=== PATIENT | female | born 1985 | race Caucasian/White ===

== ENCOUNTER 2021-05-09 17:22 | Inpatient (IN) | payer MEDICAID, OTHER ==
[~2021-05-09] VITALS: Ht 167.6 cm; Wt 116.7 kg
[2021-05-09 17:51] LABS: BASOPHILS % (AUTO) 0.4 % (0.0-2.0); EOSINOPHILS % (AUTO) 1.6 % (1.0-6.0); HEMATOCRIT 39.8 % (36-46); HEMOGLOBIN 13.1 g/dL (12.0-16.0); LYMPHOCYTES # (AUTO) 1.8 K/uL (1.0-4.8); LYMPHOCYTES % (AUTO) 22.8 % (22.0-44.0); MEAN CORPUSCULAR HGB CONC 32.9 G/dL (31.0-37.0); MEAN CORPUSCULAR VOLUME 88 fL (80-100); MONOCYTES # (AUTO) 0.6 K/uL (0.1-1.0); MONOCYTES % (AUTO) 7.1 % (2.0-9.0); NEUTROPHILS # (AUTO) 5.3 K/uL (1.8-7.7); NEUTROPHILS % (AUTO) 68.1 % (40.0-70.0); PLATELET COUNT (AUTO) 193 K/uL (150-450); RED CELL DISTRIBUTION WIDTH 13.3 % (11.5-14.5)
[2021-05-09 18:01] LABS: ANION GAP 12 mmol/L (8-16); CALCIUM, TOTAL 8.7 mg/dL (8.8-10.5); CARBON DIOXIDE 23 mmol/L (22-29); CHLORIDE 103 mmol/L (98-107); CREATININE 0.82 mg/dL (0.60-1.30); GLOMERULAR FILTR. RATE CALC > 60 mL/min (>60); GLUCOSE,RANDOM 100 mg/dL (70-110); POTASSIUM 3.5 mmol/L (3.5-5.1); SODIUM SERUM 138 mmol/L (136-145); UREA NITROGEN, BLOOD 23 mg/dL (7-18)
[2021-05-09 18:04] LABS: PROTHROMBIN TIME 10.9 SEC (9.4-11.6)
[2021-05-09 18:13] LABS: ACETAMINOPHEN 8 mcg/mL (10-30); ALANINE AMINOTRANSFERASE 21 U/L (12-78); ALBUMIN 3.8 g/dL (3.4-5.0); ALKALINE PHOSPHATASE 92 U/L (46-116); ASPARTATE AMINOTRANSFERASE 18 U/L (15-37); BILIRUBIN,TOTAL 0.4 mg/dL (0.1-1.0); HCG,QUANTITATIVE < 1 mIU/mL (0-6); SALICYLATE < 2.8 mg/dL (2.8-20.0); TOTAL PROTEIN, SERUM 7.6 g/dL (6.4-8.2)
[2021-05-09 18:24] LABS: COVID AG,FIA SOURCE NASOPHARYNGEAL
[2021-05-09] MEDS ORDERED: MAG HYDROX/AL HYDROX/SIMETH ES 30 ML SUSPENSION UDCUP PO ONE (19:15)
[2021-05-09] MEDS ORDERED: ZOLPIDEM TARTRATE 10 MG TABLET PO PRN (19:15)
[2021-05-09] MEDS ORDERED: ONDANSETRON HCL 4 MG TABLET PO ONE (19:15)
[2021-05-09] MEDS ORDERED: LORazepam 2 MG TABLET PO PRN (19:15)
[2021-05-09] MEDS ORDERED: QUEtiapine FUMARATE 100 MG TABLET PO PRN (19:15)
[2021-05-10] MEDS ORDERED: ONDANSETRON HCL 4 MG TABLET PO ONE (01:30)
[2021-05-10 09:48] LABS: CHOL/HDL RATIO 2.7 (3.9-5.7)
[2021-05-11 00:11] VITALS: BP 133/82
[2021-05-11 08:34] VITALS: BP 116/66
[2021-05-11] MEDS: ESCITALOPRAM OXALATE 10 MG TABLET PO SCH (13:45)
[2021-05-11] MEDS ORDERED: ALBUTEROL SULFATE HFA 90 MCG/PUFF 8 GM INHALER IH PRN (15:15)
[2021-05-11] MEDS ORDERED: IBUPROFEN 400 MG TABLET PO PRN (15:15)
[2021-05-11] MEDS ORDERED: GuaiFENesin/D-METHORPHAN [SUGAR-FREE] 200-20MG/10 ML SYRUP UDCUP PO PRN (15:15)
[2021-05-11] MEDS ORDERED: NICOTINE 14 MG/24 HOUR PATCH TD PRN (15:15)
[2021-05-11] MEDS ORDERED: CloNIDine HCL 0.1 MG TABLET PO PRN (15:15)
[2021-05-11] MEDS ORDERED: ONDANSETRON HCL 4 MG TABLET PO PRN (15:15)
[2021-05-11] MEDS ORDERED: DOCUSATE SODIUM 100 MG CAPSULE PO PRN (15:15)
[2021-05-11] MEDS ORDERED: PETROLATUM,WHITE 28 GM JELLY TP PRN (15:15)
[2021-05-11] MEDS ORDERED: ACETAMINOPHEN 325 MG TABLET PO PRN (15:15)
[2021-05-11] MEDS ORDERED: LOPERAMIDE HCL 2 MG CAPSULE PO PRN (15:15)
[2021-05-11] MEDS ORDERED: MAG HYDROX/AL HYDROX/SIMETH ES 30 ML SUSPENSION UDCUP PO PRN (15:15)
[2021-05-11] MEDS ORDERED: MAGNESIUM HYDROXIDE SUSPENSION 30 ML UDCUP PO PRN (15:15)
[2021-05-11 16:05] VITALS: BP 112/63
[2021-05-12 01:11] VITALS: BP 108/68
[2021-05-12 08:02] VITALS: BP 131/85
[2021-05-12] MEDS: ESCITALOPRAM OXALATE 10 MG TABLET PO SCH (08:19)
[2021-05-12 15:58] VITALS: BP 110/63
[2021-05-12 16:05] VITALS: BP 110/63
[2021-05-13 01:08] VITALS: BP 108/62
[2021-05-13 08:05] VITALS: BP 145/87
[2021-05-13] MEDS: ESCITALOPRAM OXALATE 10 MG TABLET PO SCH (08:27)
[2021-05-13] MEDS ORDERED: ESCI10 PO (14:21)
[2021-05-13 16:03] VITALS: BP 112/62
== END 2021-05-13 16:50 | disposition home or self-care (01) | DRG 751 ==
LOC: EMS 17:23 → UNDOADMIN 19:14 → B2S 19:14
DX: F32.2 Major depressive disorder, single episode, severe without psychotic features (principal); E83.51 Hypocalcemia; E66.9 Obesity, unspecified; E86.0 Dehydration; Z20.822 Contact with and (suspected) exposure to COVID-19; T50.902A Poisoning by unspecified drugs, medicaments and biological substances, intentional self-harm, initial encounter; Z79.899 Other long term (current) drug therapy; Z86.16 Personal history of COVID-19; Z91.5 Personal history of self-harm; Z68.41 Body mass index [BMI] 40.0-44.9, adult
CPT/HCPCS: 80053; 80061; 84702; 85025; 85610; 85730; 93005; 99285; G0480; G0481; Q0162